=== PATIENT | female | born 1990 | race Hispanic/Latino ===

== ENCOUNTER 2018-12-11 16:39 | Emergency (ER) | payer SELFPAY | END 2018-12-11 17:00 | disposition home or self-care (01) | LOC: ERS 16:39 | DX: L50.0 Allergic urticaria (principal) | CPT/HCPCS: 99282 ==

== ENCOUNTER 2019-02-25 12:32 | Inpatient (IN) | payer MEDICAID, SELFPAY ==
[2019-02-25] MEDS ORDERED: NS / Oxytocin 40 units/1000ml 1,000 ML ONE ×2 (12:58→12:59)
[2019-02-25] MEDS ORDERED: Lidocaine 1% (PF) 30 ML VIAL ONE ×2 (12:58→12:59)
[2019-02-25] MEDS ORDERED: Ondansetron PF 4 MG/2 ML Vial IVP PRN (13:01)
[2019-02-25] MEDS ORDERED: Butorphanol Tartrate 1 MG/ML VIAL SLOW IVP PRN (13:01)
[2019-02-25] MEDS ORDERED: NS / Oxytocin 40 units/1000ml 1,000 ML IV PRN (13:01)
[2019-02-25] MEDS ORDERED: HYDROcodone/Acetaminophen 5/325 mg Tablet PO PRN ×2 (13:01)
[2019-02-25] MEDS ORDERED: hydrALAZINE 20 MG/ML VIAL SLOW IVP PRN ×2 (13:01→14:52)
[2019-02-25] MEDS ORDERED: Ibuprofen 800 MG TAB PO PRN (13:01)
[2019-02-25] MEDS ORDERED: Lidocaine 1% (PF) 30 ML VIAL SC PRN (13:01)
[2019-02-25] MEDS ORDERED: Promethazine HCl 25 MG/ML VIAL IM PRN (13:01)
[2019-02-25] MEDS ORDERED: Lactated Ringer's 1,000 ML IV SCH ×2 (13:15)
[2019-02-25] MEDS ORDERED: NS w/ Oxytocin 10 units 500 ML IV SCH (13:15)
[2019-02-25 13:20] LABS: Hemoglobin 12.8 g/dL (12.0-16.0); Mean Corpuscular HGB CONC 34.6 g/dL (32.0-36.0); Mean Corpuscular Hemoglobin 31.8 pg (27.0-31.0); Mean Corpuscular Volume 92.1 fL (78.0-98.0); Platelet Count 129 thou/uL (130-400); RBC Distribution Width 13.1 % (11.5-14.5); Red Blood Cell (RBC) Count 4.02 mill/uL (4.20-5.40); White Blood Cell (WBC) Count 9.8 thou/uL (4.8-10.8)
[2019-02-25 13:24] VITALS: BMI 26.2
--- NOTE | 2019-02-25 13:24 | PDOC.FPROB ---
FMR OB H&P: HPI - History of Present Illness Chief Complaint: Contractions Indentification: History of Present Illness: 39.3W by LMP, c/w 16.4W US Primary Care Physician: Natacha Uriarte MD FMR OB H&P: Current - Care : 2 Para: 1 Gestational age: 39.3W Due date: 03/01/19 Dating Criteria: LMP c/w 16.4W US Total weight gain: 19 LBS - OB Labs Blood type: O RH: positive Antibody Screen: negative HIV: negative RPR: negative HepBsAg: negative Rubella: immune GBS: negative Platelets: 140 (Per Chart Review) FMR OB H&P: History - Past Medical History PMH: None - OB History OB History: Uncomplicated x1 - 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 Regular. LMP: 05/25/18 - Surgical History Sx History: None - Social History Social History: Works as a cook. Safe home environment. - Family History Family History: Language delay in cousin. FMR OB H&P: Medications - Current Home Medications: Medication Instructions Recorded Confirmed Type Vit,Calc76/Iron/Folic 1 tablet PO DAILY 03/30/15 02/26/19 History [Prenatabs Rx Tablet] Benzocaine-Menthol [Dermoplast 0 ml TOP PRN PRN can 02/26/19 Rx [place]] Bisacodyl [Dulcolax] 10 mg VT Q8H PRN supp 02/26/19 Rx Docusate Calcium [Surfak] 240 mg PO BID cap 02/26/19 Rx Ferrous Sulfate [Feosol] 325 mg PO BID-WM #60 tab 02/26/19 Rx Ibuprofen [Motrin] 800 mg PO Q8HR #15 tab 02/26/19 Rx Ibuprofen [Motrin] 800 mg PO Q8HR PRN 02/26/19 02/26/19 History Allergies/Adverse Reactions: Allergies Allergy/AdvReac Type Severity Reaction Status Date / Time No Known Allergies Allergy Unverified 03/30/15 15:56 FMR OB H&P: ROS - Review of Systems General: denies: fever/chills, recent trauma Eyes: denies: vision changes ENT: denies: ear pain Cardiovascular: denies: chest pain Respiratory: denies: cough Gastrointestinal: denies: nausea, vomiting Genitourinary (Female): reports: vaginal discharge, vaginal bleeding, contractions (Q3-5M) Neurologic: reports: headache FMR OB H&P: Vital Signs - Maternal Vital signs: Vital Signs - First Documented Temp Pulse Resp BP Pulse Ox 99.4 F 82 20 108/65 100 02/25/19 12:50 02/25/19 12:50 02/25/19 12:50 02/25/19 12:50 02/25/19 12:50 - Heart Tones Baseline: 145 Variability: moderate Acceleration: absent Deceleration: absent Category: category 1 [place] contractions every: Q3-5M FMR OB H&P: Physical Exam - Physical Exam General: NAD HEENT: normocephalic and atraumatic, PERRLA, MMM, conjunctiva clear, no scleral icterus, grossly normal vision, grossly normal hearing, normal nasal mucosa, good dention Neck: supple, FROM Chest: non-tender to palpation, no lesions Breast: symmetric Heart: RRR, normal S1/S2, no murmurs/rubs/gallops, pulses present, no edema General: CTAB, no respiratory distress, good air movement, no rales/rhonchi, no wheezing, no retractions Abdomen: gravid, non-tender Musculoskeletal: pulses present, FROM in all four extremities, no misalignment/ asymmetry, no atrophy Neurological: sensation to pain,touch and proprioception grossly normal Skin: no rash, no jaundice Lymphatic: other (Varicose veins on LLE) Psychiatric: good judgement and insight, normal mood and affect - Pelvic Exam Vulva: normal hair distribution Cervix: no masses, no lesions, no blood SVE: 90/100/1 FMR OB H&P: Results - Labs Lab results: Laboratory Results - last 24 hr 02/25/19 13:08 WBC 9.8 RBC 4.02 L Hgb 12.8 Hct 37.0 MCV 92.1 MCH 31.8 H MCHC 34.6 RDW 13.1 Plt Count 129 L MPV 10.0 FMR OB H&P: A/P - Problem List (1) Active labor at term Current Visit: Yes Status: Acute Code(s): [id number] - Assessment and Plan: 1. Active Labor, Single Intrauterine -Maternal vital signs are stable -Cat 1 strip with FHTs in the 140s, contractions Q3-5M -LR @ 125 ml/hr -No epidural desired -FHTs being monitored -SVE revealed cervical dilation to 9 cm - consider AROM -GBS Status: Neg Dispo: Admit to the L&D Floor for active management of labor Discussion: Date/Time: 02/25/19 1323 This H&P was discussed with [] and [] who agree with the above documentation and plan. Addendum - Attending - Attending Attestation Date/Time: 02/26/19 0060 I personally evaluated the patient and discussed the management with Dr. Uriarte and team. I agree with the History, Examination, Assessment and Plan documented above with any addition or exceptions noted below. 9 cm on admission.
[2019-02-25 14:02] LABS: HBSAg Index 0.94 S/CO (0-0.99); Hep B Surf Ag Non-Reactive S/CO (NonReactive); Syphilis Antibody Nonreactive (Nonreactive); Syphilis Antibody Index 0.06 S/CO (<1.00 Non-Reactive)
[2019-02-25] MEDS ORDERED: Milk Of Magnesia 30 ML UDCUP PO PRN (14:52)
[2019-02-25] MEDS ORDERED: Bisacodyl 10 MG SUPP PR PRN (14:52)
[2019-02-25] MEDS ORDERED: Adacel (T-DAP) 0.5 ML SYRINGE IM ONE (14:52)
--- NOTE | 2019-02-25 14:59 | PDOC.OPDEL ---
OB Operative/Delivery Note Delivery Dr/Surgeon: Kita Assist: Chelsea Uriarte Pre-Delivery Diagnosis: active labor Procedure/Post Delivery Dx: spontaneous vaginal delivery Weeks gestation: 39 (3) Anesthesia: none - Additional Findings/Plan Placenta delivered: spontaneous Repaired Obstetrical Laceration: 2nd degree (2 cm 2nd degree laceration at the 6 o'clock position. Hemostatic periurethral laceration noted - no intervention required.) Estimated blood loss: Pending Compilations/Other Findings: Anesthesia: Local (Lidocaine 10 ml) EBL: 415 Pre-op Diagnosis: 1. Term Intrauterine 2. Active Labor Post-op Diagnosis: 1. Term intrauterine , delivered 2. same as above Indications: A 28 y/o female presents to L&D in active labor. Delivery Note: This is 28 yo F @ 39.1 wks who delivered a viable M infant at 1414 on 02/25/19. Following an uneventful intrapartum course, a vigorous male was delivered over an intact perineum in the JENNIFER position. Anterior shoulder and then remainder of the body delivered. Nuchal cord x1 manually reduced. The head was held down and mouth and nares were bulb suctioned. Cord clamped after delayed cord clamping and cut and cord blood collected. Placenta delivered intact in the [place] presentation with a 3 vessel cord noted. Fundal massage was performed and the fundus was firm. The cervix and vagina were inspected and a periurethral abrasion was noted to be hemostatic, and a 2nd degree perineal laceration was noted in the 6 o'clock position, repaired in the usual fashion with 3-0 chromic. Infant went to nursery in good condition for routine care. Apgars were 8/9 at 1 & 5 minutes, respectively. Patient tolerated delivery well and went to after routine recovery/care. Post delivery plan: routine recovery Addendum - Attending - Attending Attestation Date/Time: 02/26/19 0834 I was present for the entire delivery and repair.
[2019-02-25] MEDS ORDERED: NS / Oxytocin 40 units/1000ml 1,000 ML IV SCH (15:00)
[2019-02-25 16:12] LABS: Hep C IgG Ab Non-Reactive (NonReactive); Hep C Index 0.05 S/CO (0-0.79)
[2019-02-25] MEDS: Ferrous Sulfate 325 MG TAB PO SCH (20:31)
[2019-02-25] MEDS ORDERED: Benzocaine-Menthol 82.5 ML CAN TOP PRN (20:56)
[2019-02-25] MEDS: Ibuprofen 800 MG TAB PO SCH (21:07)
[2019-02-25] MEDS: Docusate Calcium (SURFAK) 240 MG CAP PO SCH (21:07)
[2019-02-26] MEDS: Ibuprofen 800 MG TAB PO SCH ×2 (05:22→14:19)
[2019-02-26 05:47] LABS: #Eosinphils 0.1 thou/uL (0.0-0.7); #Lymphocytes 2.2 thou/uL (1.20-3.40); #Monocytes 0.6 thou/uL (0.11-0.59); #Neutrophils 7.3 thou/uL (1.40-6.50); %Basophils 0.4 % (0.0-1.0); %Eosinophils 0.9 % (0.0-10.0); %Lymphocytes 21.6 % (21.0-51.0); %Monocytes 6.1 % (0.0-10.0); Hemoglobin 11.5 g/dL (12.0-16.0); Mean Corpuscular HGB CONC 34.2 g/dL (32.0-36.0); Mean Corpuscular Hemoglobin 31.6 pg (27.0-31.0); Mean Corpuscular Volume 92.3 fL (78.0-98.0); Mean Platelet Volume 9.5 fL (7.4-10.4); Platelet Count 112 thou/uL (130-400); RBC Distribution Width 13.1 % (11.5-14.5); Red Blood Cell (RBC) Count 3.63 mill/uL (4.20-5.40); White Blood Cell (WBC) Count 10.2 thou/uL (4.8-10.8)
--- NOTE | 2019-02-26 07:25 | PDOC.PP ---
Post Progress Note Post Day #: 1 Subjective: Doing well. Some pain at laceration site improved with ibuprofen and getting better overall. No concerns at this time PO intake tolerated: yes Vital Signs (12 hours) Temp Pulse Resp BP Pulse Ox 02/26/19 05:20 98.7 F 56 L 16 114/61 02/26/19 00:25 99.2 F 74 16 100/55 L 02/25/19 19:33 98.7 F 66 12 100/52 L 97 Weight Weight 63.049 kg - Physical Examination General: NAD Cardiovascular: no m/r/g, RRR Respiratory: non-labored breathing Abdominal: no distention Deviation from normal: perineal laceration hemostatic, approximated Psychiatric: A&Ox3, normal affect Result Diagrams: 02/26/19 05:30 Additional Labs: Post Labs Blood Type O POSITIVE 02/25/19 15:20 Hep Bs Antigen Non-Reactive S/CO (NonReactive) 02/25/19 13:08 - Assessment/Plan 1. s/p term , PPD 1 with 2nd degree perineal laceration -AVSS, doing well, ready for home -H/H expected drop with blood loss, send home on PNV and iron -Pain controlled, healing well -Plan for nexplanon for PP control 2. Travel from [place] -Hep C negative -TB negative - labs otherwise unremarkable Dispo: d/c today pending baby bili Addendum - Attending - Attending Attestation Date/Time: 02/26/19 1202 I personally evaluated the patient and discussed the management with Dr. Uriarte. I agree with the History, Examination, Assessment and Plan documented above with any addition or exceptions noted below.
--- NOTE | 2019-02-26 08:16 | PDOC.PP ---
Addendum entered and electronically signed by Bibi Guillermo MD 02/26/19 09:51: Patient delivered yesterday at 39.3 wks Original Note: Post Progress Note Post Day #: 1 day Subjective: Pt is a 28 yof that delivered at 39 weeks. Pt is on her post day 1. Spontaneous Vaginal delivery with a 2nd degree laceration, no other complications. Pt reports she slept fine last night, normal BMs and urination, appetite has been well. Pt able to walk and move around. Pt complains of pain 8/ 10 pain from the vaginal laceration with defication. Pt reports pain is worse from yesterday. Pt appears comfortable, sitting in bed. Pt plans on nexplanon for contraception. Pt denies fever, nausea or vomiting. PO intake tolerated: yes Flatus: yes Ambulation: yes Vital Signs (12 hours) Temp Pulse Resp BP 02/26/19 05:20 98.7 F 56 L 16 114/61 02/26/19 00:25 99.2 F 74 16 100/55 L Weight Weight 63.049 kg - Physical Examination Cardiovascular: no m/r/g, RRR Respiratory: clear to auscultation bilaterally, non-labored breathing Abdominal: no distention Psychiatric: A&Ox3, normal affect Result Diagrams: 02/26/19 05:30 Additional Labs: Post Labs Blood Type O POSITIVE 02/25/19 15:20 Hep Bs Antigen Non-Reactive S/CO (NonReactive) 02/25/19 13:08 (1) Second degree perineal laceration during delivery Code(s): O70.1 - SECOND DEGREE PERINEAL LACERATION DURING DELIVERY Status: Acute - Assessment/Plan Pt reports pain with defecation from the 2nd degree laceration. Recommend NSAIDS for pain and to keep the area clean. Apply ice packs to area every couple hours for today. Recommend lying and down and resting as needed. Low fiber diet and stool softners to decrease strain with BM for the next 4-6 weeks. Addendum - Attending - Attending Attestation Date/Time: 02/26/19 1208 Reviewed. See resident's note.
[2019-02-26] MEDS: Docusate Calcium (SURFAK) 240 MG CAP PO SCH (09:08)
[2019-02-26] MEDS: Ferrous Sulfate 325 MG TAB PO SCH ×2 (09:11→17:40)
[2019-02-26 09:25] VITALS: TEMP 98.4
[2019-02-26 11:20] VITALS: BP 98/57
== END 2019-02-26 17:45 | disposition home or self-care (01) | DRG 807 ==
LOC: L&D/OP 12:32 → L&D 14:08 → 3SW 17:54
PROVIDERS: ADMIT Emergency Medicine; ATTEND Emergency Medicine
PROC: 10E0XZZ Delivery of Products of Conception, External Approach (ICD-10-PCS; principal; 2019-02-25)
PROC: 0KQM0ZZ Repair Perineum Muscle, Open Approach (ICD-10-PCS; 2019-02-25)
DX: O69.1XX0 Labor and delivery complicated by cord around neck, with compression, not applicable or unspecified (principal); Z37.0 Single live birth; O70.1 Second degree perineal laceration during delivery; Z3A.39 39 weeks gestation of pregnancy
CPT/HCPCS: 36415; 85025; 85027; 86780; 86803; 86850; 86900; 86901; 87340; 87804; 99285; J2001